=== PATIENT | female | born 1995 | race Caucasian/White ===

== ENCOUNTER 2017-06-01 22:47 | Emergency (ER) | payer BC ==
[~2017-06-01] VITALS: Ht 165.1 cm; Wt 68.0 kg
[2017-06-01 23:20] VITALS: BP 108/53; PULSE 89; RESP 15; TEMP 98.2; O2SAT 100
[2017-06-02 01:51] VITALS: BP 109/56; PULSE 99; RESP 16; O2SAT 97
--- NOTE | 2017-06-02 03:32 | PD ---
HPI Chief Complaint: GI Complaint Time Seen by Provider: 23:33 Travel History International Travel<30 days: No Contact w/Intl Traveler<30days: No Traveled to known affect area: No History of Present Illness HPI Patient is a 22-year-old female who was at a wedding tonight drank excessively vomiting and family was worried the excessive amount of vomiting and called the paramedics she is brought to the ER she is obtunded but protecting her airway there is no signs of respiratory distress or aspiration pneumonia or need for emergent airway control she is reported to be intoxicated from paramedics family so they were throwing water on her to help her but she stated unconscious obtunded and vomiting. In the ER all her vitals are within normal limits but she is very sedated with alcohol intoxication [facility] Past Medical History Immunizations Current: Yes Tetanus Vaccination: Unknown Influenza Vaccination: No ?: Unknown Social History Alcohol Use: Yes (socially) Tobacco Use: No Substance Use: No Allergies-Medications (Allergen,Severity, Reaction): Coded Allergies: No Known Allergies (Unverified , 06/01/17) Reported Meds & Prescriptions Reported Meds & Active Scripts Active No Active Prescriptions or Reported Medications Review of Systems ROS Limitations: Intoxication, Unresponsive Physical Exam Narrative GENERAL: Patient is no signs of trauma to her head she is intoxicated sleeping vitals within normal limits SKIN: Warm and dry. HEAD: Atraumatic. Normocephalic. No signs of head injury palpation of the head no pain is elicited EYES: Pupils equal and round. No scleral icterus. No injection or drainage. ENT: No nasal bleeding or discharge. Mucous membranes pink and moist. NECK: Trachea midline. No JVD. CARDIOVASCULAR: Regular rate and rhythm. RESPIRATORY: No accessory muscle use. Clear to auscultation. Breath sounds equal bilaterally. GASTROINTESTINAL: Abdomen soft, non-tender, nondistended. Hepatic and splenic margins not palpable. MUSCULOSKELETAL: Extremities without clubbing, cyanosis, or edema. No obvious deformities. NEUROLOGICAL: Neuro exam unable to be achieved due to intoxication and obtunded. PSYCHIATRIC: Intoxicated responsive to pain but obtunded airway protected Data Data Last Documented VS Vital Signs Date Time Temp Pulse Resp B/P (MAP) Pulse Ox O2 Delivery O2 Flow Rate FiO2 06/02/17 05:55 06/02/17 05:00 89 16 97 Room Air 06/01/17 23:20 98.2 Orders Orders Ed Discharge Order (06/02/17 05:51) MDM Medical Decision Making Medical Screen Exam Complete: Yes Emergency Medical Condition: Yes Differential Diagnosis alcohol intox vs other polysubstance ingestion intox vs head injury plus intox other Narrative Course After 4 hours in the ER patient wakes walks to the bathroom denies any head injury no pain in her abdomen no pain in her long bones of her body reexam she is no signs of injury palpation of her head no signs of injury she is awake alert no coughing no signs of aspiration no signs of intoxication she will be picked up by her family Diagnosis Primary Impression: Alcohol intoxication Qualified Codes: F10.920 - Alcohol use, unspecified with intoxication, uncomplicated Patient Instructions: Alcohol Intoxication (ED), General Instructions Scripts No Active Prescriptions or Reported Meds Disposition: 01 DISCHARGE HOME Jordan Martinez MD Jun 02, 2017 03:32
[2017-06-02 05:00] VITALS: BP 105/60; PULSE 89; RESP 16; O2SAT 97
== END 2017-06-02 06:03 | disposition home or self-care (01) ==
LOC: NEPC 22:47
DX: F10.920 Alcohol use, unspecified with intoxication, uncomplicated (principal)
CPT/HCPCS: 99282